=== PATIENT | female | born 1970 | race Two or more races ===

== ENCOUNTER 2017-02-22 14:04 | Inpatient (IN) | payer OTHER ==
[~2017-02-22] VITALS: Ht 157.5 cm; Wt 70.4 kg
[2017-02-22 17:13] LABS: BASOPHIL % 1.5 % (0-2); PLATELET COUNT 264 x10^3mcL (130-400); RED CELL DISTRIBUTION WIDTH 12.7 % (11.5-14.5)
[2017-02-22 17:13] LABS: microscopic required? YES; urine erythrocyte 1+ (NEGATIVE)
[2017-02-22 17:22] LABS: CALCIUM 9.1 mg/dL (8.5-10.1); CARBON DIOXIDE 30.5 mmol/L (21-32); CHLORIDE SERUM 103 mmol/L (98-107); CREATININE SERUM 0.8 mg/dL (0.6-1.0); GFR1 > 60 mL/min; GLUCOSE SERUM 95 mg/dL (74-106); POTASSIUM SERUM 3.5 mmol/L (3.5-5.1); SODIUM SERUM 140 mmol/L (136-145)
[2017-02-22 17:27] LABS: ALBUMIN 3.9 g/dL (3.4-5.0); ALKALINE PHOSPHATASE 104 U/L (46-116); ALT/SGPT 37 U/L (14-59); AST/SGOT 31 U/L (15-37); BILIRUBIN TOTAL 1.44 mg/dL (0.20-1.00); LIPASE 114 IU/L (73-393); TOTAL PROTEIN, SERUM 7.6 g/dL (6.4-8.2)
[2017-02-22 20:02] LABS: MAGNESIUM 2.1 mg/dL (1.8-2.4); PHOSPHOROUS 3.6 mg/dL (2.5-4.9)
[2017-02-22 20:03] LABS: CHOLESTEROL/HDL RATIO 2.8
[2017-02-22 20:06] LABS: AMPHETAMINE QUAL UR NONE DETECTED (NEG <=1000)
[2017-02-22 20:12] LABS: T3 TOTAL 1.29 ng/mL
[2017-02-22 20:13] LABS: FREE T4 1.1 ng/dL (0.76-1.46); T4(THYROXINE) 9.8 ug/dL (4.7-13.3)
[2017-02-22 20:42] VITALS: BP 120/64
[2017-02-23 04:58] VITALS: BP 114/69
[2017-02-23 06:21] LABS: BASOPHIL % 0.3 % (0-2); PLATELET COUNT 219 x10^3mcL (130-400)
[2017-02-23 06:33] LABS: CALCIUM 8.4 mg/dL (8.5-10.1); CARBON DIOXIDE 25.5 mmol/L (21-32); CHLORIDE SERUM 107 mmol/L (98-107); CREATININE SERUM 0.7 mg/dL (0.6-1.0); GFR1 > 60 mL/min; GLUCOSE SERUM 91 mg/dL (74-106); POTASSIUM SERUM 3.3 mmol/L (3.5-5.1); SODIUM SERUM 141 mmol/L (136-145)
[2017-02-23 09:03] VITALS: BP 114/74
[2017-02-23 13:27] VITALS: BP 115/76
[2017-02-23 17:42] VITALS: BP 126/75
[2017-02-23 20:57] VITALS: BP 114/70
[2017-02-24 05:39] VITALS: BP 112/52
[2017-02-24 05:40] VITALS: BP 119/67
[2017-02-24 06:18] LABS: BASOPHIL % 0.4 % (0-2); PLATELET COUNT 232 x10^3mcL (130-400); RED CELL DISTRIBUTION WIDTH 12.9 % (11.5-14.5)
[2017-02-24 06:47] LABS: CALCIUM 8.4 mg/dL (8.5-10.1); CHLORIDE SERUM 106 mmol/L (98-107); CREATININE SERUM 0.7 mg/dL (0.6-1.0); GFR1 > 60 mL/min; GLUCOSE SERUM 94 mg/dL (74-106); MAGNESIUM 2.1 mg/dL (1.8-2.4); PHOSPHOROUS 2.5 mg/dL (2.5-4.9); POTASSIUM SERUM 3.5 mmol/L (3.5-5.1); SODIUM SERUM 140 mmol/L (136-145)
[2017-02-24 08:40] VITALS: BP 122/79
[2017-02-24 12:42] VITALS: BP 136/74
[2017-02-24 17:25] VITALS: BP 123/76
[2017-02-24 20:42] VITALS: BP 112/80
[2017-02-25 06:13] VITALS: BP 115/83
[2017-02-25 06:30] LABS: BASOPHIL % 0.4 % (0-2); PLATELET COUNT 225 x10^3mcL (130-400); RED CELL DISTRIBUTION WIDTH 12.6 % (11.5-14.5)
[2017-02-25 06:43] LABS: CARBON DIOXIDE 26.9 mmol/L (21-32); CHLORIDE SERUM 108 mmol/L (98-107); CREATININE SERUM 0.6 mg/dL (0.6-1.0); GFR1 > 60 mL/min; GLUCOSE SERUM 82 mg/dL (74-106); MAGNESIUM 2.1 mg/dL (1.8-2.4); PHOSPHOROUS 2.7 mg/dL (2.5-4.9); POTASSIUM SERUM 3.4 mmol/L (3.5-5.1); SODIUM SERUM 142 mmol/L (136-145)
[2017-02-25 09:13] VITALS: BP 111/70
[2017-02-25] MEDS ORDERED: PRI20 PO (11:55)
[2017-02-25] MEDS ORDERED: LAC PO (11:55)
[2017-02-25] MEDS ORDERED: LEVAQUIN750 MG PO (11:56)
[2017-02-25] MEDS ORDERED: ZOF4 PO (12:01)
[2017-02-25 12:46] VITALS: BP 111/70
[2017-02-25 13:22] VITALS: BP 114/75
== END 2017-02-25 15:43 | disposition home or self-care (01) | DRG 380 ==
LOC: ED 14:04 → DU 19:31
PROVIDERS: Emergency Medicine; Internal Medicine Gastroenterology; ADMIT Family Medicine
PROC: 0DB58ZX Excision of Esophagus, Via Natural or Artificial Opening Endoscopic, Diagnostic (ICD-10-PCS; principal; 2017-02-23 10:30)
PROC: 0DB78ZX Excision of Stomach, Pylorus, Via Natural or Artificial Opening Endoscopic, Diagnostic (ICD-10-PCS; 2017-02-23 10:30)
DX: K22.10 Ulcer of esophagus without bleeding (principal); N17.0 Acute kidney failure with tubular necrosis; K57.32 Diverticulitis of large intestine without perforation or abscess without bleeding; K29.80 Duodenitis without bleeding; E87.6 Hypokalemia; K21.0 Gastro-esophageal reflux disease with esophagitis; K44.9 Diaphragmatic hernia without obstruction or gangrene; E78.5 Hyperlipidemia, unspecified; E80.6 Other disorders of bilirubin metabolism; F17.210 Nicotine dependence, cigarettes, uncomplicated; Z88.0 Allergy status to penicillin; Z90.710 Acquired absence of both cervix and uterus; Z83.3 Family history of diabetes mellitus; Z80.9 Family history of malignant neoplasm, unspecified; R31.9 Hematuria, unspecified
CPT/HCPCS: 43235; 83880; 84439; J1200; J1610; J1885; J1956; J2250; J2270; J2310; J2405; J3010; J3490; J7030; Q0092